=== PATIENT | female | born 1980 | race Caucasian/White ===

== ENCOUNTER 2017-10-09 00:11 | Emergency (ER) | payer BC, SELFPAY ==
[2017-10-09 01:28] LABS: Absolute Lymphocytes (CBC) 3.7 K/uL (0.7-4.9); Absolute Monocytes 0.4 K/uL (0.1-1.3); Absolute Neutrophil 5.9 K/uL (1.8-8.0); Basophils % 0.8 % (0-1.3); Eosinophils % 2.7 % (0-4.4); Hematocrit 39.8 % (36.0-45.0); Lymphocytes % 35.8 % (15.3-44.8); MCH 28.7 pg (27.0-35.0); MCV 84.9 fL (80-100); MPV 9.1 fL (7.6-11.3); Monocytes % 4.2 % (3.3-12.3); RBC Red Blood Cell Count 4.69 M/uL (3.86-4.86)
[2017-10-09 01:31] LABS: Bicarbonate 24 mEq/L (21-31); Glucose Level 94 mg/dL (65-120); Lipase 33 U/L (22-51); Potassium 3.5 mEq/L (3.6-5.0); Sodium Level 137 mEq/L (135-145)
[2017-10-09 01:37] LABS: Urine Blood TRACE (NEG); Urine Glucose NEGATIVE (NEG); Urine Protein NEGATIVE (NEG); Urine pH 6.5 (5.0-7.0)
[2017-10-09 01:37] LABS: ALT/SGPT 16 IU/L (10-60); AST/SGOT 17 IU/L (10-42); Albumin 3.8 g/dL (3.2-5.5); Alkaline Phosphatase 61 IU/L (42-121); Amylase Level 61 U/L (28-100); BUN Blood Urea Nitrogen 8 mg/dL (6-20); Bilirubin Direct < 0.1 mg/dL (0-0.2); Bilirubin Total 0.3 mg/dL (0.3-1.2); Protein, Total 7.5 g/dL (6.0-8.3)
[2017-10-09] MEDS ORDERED: ONDANSETRON 4 MG/2 ML VIAL ONE (01:58)
[2017-10-09] MEDS ORDERED: MORPHINE 4 MG/ML SYR ONE ×2 (01:58→04:08)
[2017-10-09] MEDS ORDERED: NA CHLORIDE 0.9% 1,000 ML ONE (02:06)
[2017-10-09 02:21] LABS: Urine Bacteria <20 /HPF (<20); Urine Culture Reflex Order NOT NEEDED; Urine RBC <5 /HPF (NONE SEEN)
--- NOTE | 2017-10-09 04:45 | ER ---
Nurse's Notes [facility] Name: Kimber Wilcox Age: 37 yrs Sex: Female : 1980 Arrival Date: 10/09/2017 Time: 00:13 Bed 24 Private MD: Dillon Carter Diagnosis: thoracic wall strain Presentation: 10/09 00:25 Presenting complaint: Patient states: that on Sunday she started to have pain to left fc side under breast area. States that it is sharp and is worse with deep breathing and lying flat. Transition of care: patient was not received from another setting of care. Onset of symptoms was October 05, 2017. Risk Assessment: Do you want to hurt yourself or someone else? Patient reports no desire to harm self or others. Initial Sepsis Screen: Does the patient meet any 2 criteria? No. Patient's initial sepsis screen is negative. Does the patient have a suspected source of infection? No. Patient's initial sepsis screen is negative. Care prior to arrival: Medication(s) given: Motrin, 600 mg, last at 1800. 00:25 Method Of Arrival: Ambulatory fc 00:25 Acuity: MARK 3 Triage Assessment: 00:30 General: Appears uncomfortable, obese, Behavior is calm, cooperative, appropriate for age. Pain: Complains of pain in left upper abd under left breast Pain currently is 7 out of 10 on a pain scale. Quality of pain is described as dull, sharp, Pain began gradually, Is continuous, Aggravated by increased activity, repositioning, deep breathing. EENT: No deficits noted. Neuro: Level of Consciousness is awake, alert, obeys commands, Oriented to person, place, time, situation. Cardiovascular: No deficits noted. Respiratory: Reports pain with movement pain with respiration Airway is patent Trachea midline Respiratory effort is even, unlabored, Respiratory pattern is regular, symmetrical, Onset: The symptoms/episode began/occurred gradually, the patient has mild shortness of breath. GI: No deficits noted. : No deficits noted. Derm: Skin is pink, warm \\T\\ dry. Musculoskeletal: Circulation, motion, and sensation intact. Capillary refill < 3 seconds, Range of motion: intact in all extremities. 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 - Social history:: Smoking status: Patient uses tobacco products, smokes one-half pack cigarettes per day. - Ebola Screening: : Patient negative for fever greater than or equal to 101.5 degrees Fahrenheit, and additional compatible Ebola Virus Disease symptoms Patient denies exposure to infectious person Patient denies travel to an Ebola-affected area in the 21 days before illness onset. Screenin:29 Abuse screen: Denies threats or abuse. Nutritional screening: No deficits noted. fc Tuberculosis screening: No symptoms or risk factors identified. Fall Risk None identified. Assessment: 01:07 General: Appears in no apparent distress. well groomed, well developed, well nourished, rk2 Behavior is calm, cooperative. Pain: Complains of pain in abdomen, under left breast area. Neuro: Level of Consciousness is alert, obeys commands, Oriented to person, place, time, situation. Cardiovascular: No deficits noted. Respiratory: Airway is patent Respiratory effort is even, unlabored, Respiratory pattern is regular, symmetrical. EENT: No deficits noted. Derm: Skin is pink, warm \\T\\ dry. 02:01 Reassessment: Patient appears in no apparent distress at this time. No changes from rk2 previously documented assessment. Patient and/or family updated on plan of care and expected duration. Pain level reassessed. 03:05 Reassessment: Pt. transported to ID in wheelchair by the [facility]. rk 04:03 Reassessment: Patient is alert, oriented x 3, equal unlabored respirations, skin bb warm/dry/pink. pt states her pain medication wore off and now "it is back with a vengeance" Dr Thomas notified. 04:57 Reassessment: Patient appears in no apparent distress at this time. No changes from ak1 previously documented assessment. Patient and/or family updated on plan of care and expected duration. Pain level reassessed. Patient is alert, oriented x 3, equal unlabored respirations, skin warm/dry/pink. Patient states feeling better. Patient states symptoms have improved. Vital Signs: 00:28 BP 105 / 82; Pulse 84; Resp 18; Temp 98.8(O); Pulse Ox 98% on R/A; Weight 102.06 kg fc (R); Height 5 ft. 2 in. (157.48 cm) (R); Pain 7/10; 02:01 BP 134 / 104; Pulse 88; Resp 16; Pulse Ox 99% on R/A; rk2 03:01 BP 110 / 79; Pulse 81; Resp 16; Pulse Ox 98% on R/A; rk2 04:04 BP 115 / 83; Pulse 74; Resp 16; Pulse Ox 98% on R/A; Pain 7/10; bb 00:28 Body Mass Index 41.15 (102.06 kg, 157.48 cm) ED Course: 00:13 Patient arrived in ED. am2 00:14 Dillon Carter MD is Private Physician. am2 00:28 Triage completed. fc 00:28 Arm band placed on Patient placed in an exam room, on a stretcher. fc 00:29 Patient has correct armband on for positive identification. Bed in low position. fc 00:29 No provider procedures requiring assistance completed. fc 00:35 Sanna Mckinley, BRYCE is Primary Nurse. rk2 00:43 Yusuf Thomas MD is Attending Physician. tw4 02:06 Chest Pa And Lat (2 Views) XRAY Sent. rk2 02:11 Patient moved to radiology via wheelchair. kw 02:12 X-ray completed. Patient tolerated procedure well. kw 02:12 Patient moved back from radiology. kw 02:12 Chest Pa And Lat (2 Views) XRAY In Process Unspecified. EDMS 03:[address] via wheelchair. kw1 03:21 CT completed. Patient tolerated procedure well. Patient moved back from CT. kw1 03:22 CT Chest Abdomen Pelvis W/O Contrast In Process Unspecified. EDMS 04:44 Dillon Carter MD is Referral Physician. tw4 04:57 IV discontinued, intact, bleeding controlled, No redness/swelling at site. Pressure ak1 dressing applied. Administered Medications: 02:01 Drug: morphine 4 mg Route: IVP; Site: right antecubital; rk2 02:55 Follow up: Response: No adverse reaction rk2 02:01 Drug: Zofran 4 mg Route: PO; rk2 02:55 Follow up: Response: No adverse reaction rk2 02:05 Drug: NS 0.9% 1000 ml Route: IV; Rate: 125 ml/hr; Site: right antecubital; rk2 04:11 Drug: morphine 4 mg Route: IVP; Site: right antecubital; leena 04:56 Follow up: Response: No adverse reaction ak1 Outcome: 04:44 Discharge ordered by . tw4 04:57 Discharged to home ambulatory, with family. ak1 04:57 Condition: improved 04:57 Discharge instructions given to patient, family, Instructed on discharge instructions, follow up and referral plans. no drinking with medication, no driving heavy equipment, medication usage, Demonstrated understanding of instructions, follow-up care, medications, Prescriptions given X 2. 04:58 Patient left the ED. ak1 Signatures: Dispatcher [employer] EDMS Adriana Caban RN Anali Prabhakar RN RN bb Whitley, Kimberlee kw Krenek, Amber, RN RN ak1 Angie Sotelo Kimberly kw1 Wadley, Terrence, MD MD tw4 Sanna Mckinley RN RN rk2
--- NOTE | 2017-10-09 04:45 | EDPHYS ---
Physician Documentation [facility] Name: Kimber Wilcox Age: 37 yrs Sex: Female : 1980 Arrival Date: 10/09/2017 Time: 00:13 Bed 24 Private MD: Dillon Carter ED Physician Yusuf Thomas HPI: 10/09 01:59 This 37 yrs old Female presents to ER via Ambulatory with complaints of Flank tw4 Pain - left, rib pain. 01:59 The patient complains of pain in the left mid back. The pain does not radiate. Onset: tw4 The symptoms/episode began/occurred today. Modifying factors: The symptoms are alleviated by nothing. the symptoms are aggravated by nothing. Associated signs and symptoms: The patient has no apparent associated signs or symptoms. Severity of pain: At its worst the pain was moderate in the emergency department the pain is unchanged. The patient has not experienced similar symptoms in the past. 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 - Social history:: Smoking status: Patient uses tobacco products, smokes one-half pack cigarettes per day. - Ebola Screening: : Patient negative for fever greater than or equal to 101.5 degrees Fahrenheit, and additional compatible Ebola Virus Disease symptoms Patient denies exposure to infectious person Patient denies travel to an Ebola-affected area in the 21 days before illness onset. ROS: 01:59 Constitutional: Negative for fever, chills, and weight loss, Respiratory: Negative for tw4 shortness of breath, cough, wheezing, and pleuritic chest pain, Abdomen/GI: Negative for abdominal pain, nausea, vomiting, diarrhea, and constipation. 01:59 Back: Negative for injury and pain, MS/Extremity: Negative for injury and deformity, Skin: Negative for injury, rash, and discoloration. 01:59 Cardiovascular: Positive for chest pain, Negative for edema, orthopnea, palpitations. Exam: 01:59 Constitutional: This is a well developed, well nourished patient who is awake, alert, tw4 and in no acute distress. Cardiovascular: Regular rate and rhythm with a normal S1 and S2. No gallops, murmurs, or rubs. Normal PMI, no JVD. No pulse deficits. Respiratory: Lungs have equal breath sounds bilaterally, clear to auscultation and percussion. No rales, rhonchi or wheezes noted. No increased work of breathing, no retractions or nasal flaring. Abdomen/GI: Soft, non-tender, with normal bowel sounds. No distension or tympany. No guarding or rebound. No evidence of tenderness throughout. Back: No spinal tenderness. No costovertebral tenderness. Full range of motion. MS/ Extremity: Pulses equal, no cyanosis. Neurovascular intact. Full, normal range of motion. 01:59 Chest/axilla: Inspection: no acute changes, Palpation: tenderness, that is moderate, that totally reproduces the patient's complaints. Vital Signs: 00:28 BP 105 / 82; Pulse 84; Resp 18; Temp 98.8(O); Pulse Ox 98% on R/A; Weight 102.06 kg fc (R); Height 5 ft. 2 in. (157.48 cm) (R); Pain 7/10; 02:01 BP 134 / 104; Pulse 88; Resp 16; Pulse Ox 99% on R/A; rk2 03:01 BP 110 / 79; Pulse 81; Resp 16; Pulse Ox 98% on R/A; rk2 04:04 BP 115 / 83; Pulse 74; Resp 16; Pulse Ox 98% on R/A; Pain 7/10; bb 00:28 Body Mass Index 41.15 (102.06 kg, 157.48 cm) MDM: 00:43 Patient medically screened. 10/09 00:47 Order name: Urine Dipstick--Ancillary (enter results); Complete Time: 01:56 10/09 01:56 Interpretation: Normal except: UBLD TRACE. 10/09 00:47 Order name: Urine --Ancillary (enter results); Complete Time: 01:56 10/09 00:48 Order name: Amylase, Serum; Complete Time: 01:56 10/09 00:48 Order name: Basic Metabolic Panel; Complete Time: 01:56 10/09 01:56 Interpretation: Normal except: K 3.5. 10/09 00:48 Order name: CBC with Diff; Complete Time: 01:56 10/09 01:56 Interpretation: Abnormal. 10/09 00:48 Order name: Creatinine for Radiology; Complete Time: 02:46 10/09 00:48 Order name: Hepatic Function; Complete Time: 01:56 10/09 02:46 Interpretation: Normal except: GLOB 3.7; A/G 1.0. 10/09 00:48 Order name: Lipase; Complete Time: 01:56 10/09 00:48 Order name: Urine Microscopic Only; Complete Time: 02:46 10/09 01:58 Order name: Chest Pa And Lat (2 Views) XRAY 10/09 02:46 Order name: CT Chest Abdomen Pelvis W/O Contrast 10/09 00:48 Order name: Urine Test (obtain specimen); Complete Time: 00:56 10/09 00:48 Order name: IV Saline Lock; Complete Time: 01:06 10/09 00:48 Order name: Labs collected and sent; Complete Time: 01:06 10/09 00:48 Order name: Urine Dipstick-Ancillary (obtain specimen); Complete Time: 00:57 4 Administered Medications: 02:01 Drug: morphine 4 mg Route: IVP; Site: right antecubital; rk2 02:55 Follow up: Response: No adverse reaction rk2 02:01 Drug: Zofran 4 mg Route: PO; rk2 02:55 Follow up: Response: No adverse reaction rk2 02:05 Drug: NS 0.9% 1000 ml Route: IV; Rate: 125 ml/hr; Site: right antecubital; rk2 04:11 Drug: morphine 4 mg Route: IVP; Site: right antecubital; bb 04:56 Follow up: Response: No adverse reaction ak1 Disposition: 10/09/17 04:44 Discharged to Home. Impression: thoracic wall strain. - Condition is Stable. - Discharge Instructions: Thoracic Strain, [id number]. - Prescriptions for Ibuprofen 800 mg Oral Tablet - take 1 tablet by ORAL route every 8 hours As needed take with food; 30 tablet. Tylenol- Codeine #3 300-30 mg Oral Tablet - take 2 tablet by ORAL route every 6 hours As needed; 6 tablet. - Medication Reconciliation Form, Thank You Letter, Antibiotic Education, Prescription Opioid Use form. - Follow up: Dillon Carter MD; When: As needed; Reason: Recheck today's complaints, Continuance of care, Re-evaluation by your physician. - Problem is new. - Symptoms have improved. Signatures: Dispatcher [employer] EDMS Adriana Caban RN RN Anali Carmona RN RN Ysabel Sanders RN RN ak1 Yusuf Thomas MD MD tw4 Sanna Mckinley RN RN rk2 Corrections: (The following items were deleted from the chart) 01:57 01:56 Within normal limits. tw4 04:58 04:44 10/09/2017 04:44 Discharged to Home. Impression: thoracic wall strain. Condition ak1 is Stable. Forms are Medication Reconciliation Form, Thank You Letter, Antibiotic Education, Prescription Opioid Use. Follow up: Dillon Carter; When: As needed; Reason: Recheck today's complaints, Continuance of care, Re-evaluation by your physician. Problem is new. Symptoms have improved. tw4
--- NOTE | 2017-10-09 09:16 | RAD REPORT ---
EXAM DESCRIPTION: RAD - Chest Pa And Lat (2 Views) - 10/09/2017 2:14 am CLINICAL HISTORY: Chest pain. COMPARISON: 12/09/2016 FINDINGS: Linear atelectasis is present both lung bases. The lungs are otherwise clear. The heart is normal in size. No displaced fractures. IMPRESSION: Linear subsegmental atelectasis in both lung bases.
--- NOTE | 2017-10-09 09:24 | RAD REPORT ---
EXAM DESCRIPTION: CT - Chest Abd Pelvis Wo Con - 10/09/2017 6:16 am CLINICAL HISTORY: Chest and abdomen pain. COMPARISON: 12/05/[address] scans are performed using dose optimization technique as appropriate and may includ e automated exposure control or mA/KV adjustment according to patient size. FINDINGS: Linear subsegmental atelectasis is seen in both posterior lung bases.Gastric banding is no jessy.No pleural or pericardial effusion.No intrathoracic adenopathy. The liver, spleen, pancreas, adrenal glands and kidneys are within normal limits. Cholecystectomy cli ps. No bowel obstruction, free air, free fluid or abscess. No pathologic lymphadenopathy in the abdomen o r pelvis. No worrisome osseous finding. 3.5 cm left ovarian follicle/cyst is suspected. IMPRESSION: No acute process is identified.
== END 2017-10-09 04:58 | disposition home or self-care (01) ==
LOC: ER 00:11
DX: S29.012A Strain of muscle and tendon of back wall of thorax, initial encounter (principal); F17.210 Nicotine dependence, cigarettes, uncomplicated
CPT/HCPCS: 36415; 71046; 71250; 74176; 80048; 80076; 81003; 81015; 81025; 82150; 83690; 85025; 96374; 99284; J2405; J7030

== ENCOUNTER 2024-02-12 17:12 | Emergency (ER) | payer OTHER ==
[2024-02-12] MEDS ORDERED: IBUPROFEN 200 MG TAB PO ONE (17:52)
[2024-02-12] MEDS ORDERED: IBUPROFEN 400 MG TAB ONE (17:53)
[2024-02-12] MEDS ORDERED: HYDROCODONE/APAP 5/325 MG TAB ONE (18:42)
--- NOTE | 2024-02-12 19:03 | RAD REPORT ---
EXAMINATION: XR RIGHT SHOUDLER CLINICAL INDICATION: Female, 43 years old. PAIN RIGHT TECHNIQUE:Two view radiograph of the right shoulder were obtained. COMPARISON: No prior exam. FINDINGS: No bone or joint abnormality detected. No focal osseous lesion. AC joint is unremarkable. IMPRESSION: No acute or significant abnormalities.
--- NOTE | 2024-02-12 19:13 | EDPHYS ---
Physician Documentation [facility] Name: Kimber Wilcox Age: 43 yrs Sex: Female : 1980 Arrival Date: 02/12/2024 Time: 17:12 Bed 14 Private MD: ED Physician Niraj Chawla HPI: 02/11 17:29 This 43 yrs old Female presents to ER via Unassigned with complaints of Shoulder ms3 Injury, Arm Injury, Fall Injury. 17:29 43-year-old female with no past medical history presents to the emergency department 45 ms3 minutes status post falling through the floor of her house. Patient states when falling 1 leg went through the floor and she went forward catching herself with her right arm against the door. Patient states her pain is a 6/10. Patient states pain is worse with movement of her right shoulder.. 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 - Infectious Disease History:: Denies. - Social history:: Smoking status: Patient/guardian denies using tobacco. ROS: 17:29 Constitutional: Negative for fever, and chills. Cardiovascular: Negative for chest ms3 pain, and palpitations. Respiratory: Negative for shortness of breath, cough, wheezing, and pleuritic chest pain, Abdomen/GI: Negative for abdominal pain, nausea, vomiting, diarrhea, and constipation, 17:29 MS/extremity: Positive for pain, of the Right shoulder, Exam: 17:29 Constitutional: This is a well developed, well nourished patient who is awake, alert, ms3 and in no acute distress. Head/Face: Normocephalic, atraumatic. Chest/axilla: Normal chest wall appearance and motion. Nontender with no deformity. Cardiovascular: Regular rate and rhythm with a normal S1 and S2. No gallops, murmurs, or rubs. Normal PMI, no JVD. No pulse deficits. Respiratory: Lungs have equal breath sounds bilaterally, clear to auscultation and percussion. No rales, rhonchi or wheezes noted. No increased work of breathing, no retractions or nasal flaring. Abdomen/GI: Soft, non-tender, with normal bowel sounds. No distension or tympany. No guarding or rebound. No evidence of tenderness throughout. 17:29 Musculoskeletal/extremity: Extremities: noted in the Right shoulder: pain, swelling, tenderness, Vital Signs: 17:30 BP 123 / 84; Pulse 80; Resp 18; Pulse Ox 99% on R/A; db 17:31 BP 147 / 88; Pulse 83; Resp 16; Temp 97.7(TE); Pulse Ox 98% on R/A; Weight 101.15 kg; hb Height 5 ft. 2 in. ; Pain 4/10; 18:00 BP 122 / 87; Pulse 75; Resp 18; Pulse Ox 100% on R/A; db 18:30 BP 117 / 88; Pulse 77; Resp 18; Pulse Ox 98% on R/A; db 19:21 BP 127 / 88; Pulse 77; Resp 18; Pulse Ox 99% on R/A; kj2 17:31 Body Mass Index 40.79 (101.15 kg, 157.48 cm) hb 17:31 Pain Scale: Adult hb MDM: 17:29 Differential diagnosis: Anterior dislocation without fracture, DJD, tendonitis, Humerus ms3 fracture versus rotator cuff tear. 17:31 Patient medically screened. ms3 19:13 Data reviewed: vital signs, nurses notes, radiologic studies, plain films, and as a ms3 result, I will discharge patient. I considered the following discharge prescriptions or medication management in the emergency department Medications were administered in the Emergency Department. See MAR. Independent interpretation of the following test(s) in the Emergency Department X-Ray: My interpretation is Right shoulder x-ray images reviewed by me do not reveal dislocation or fracture. Counseling: I had a detailed discussion with the patient and/or guardian regarding the historical points, exam findings, and any diagnostic results supporting the discharge/admit diagnosis, radiology results, to return to the emergency department if symptoms worsen or persist or if there are any questions or concerns that arise at home. Response to treatment: the patient's symptoms have markedly improved after treatment. Special discussion: I discussed with the patient/guardian in detail that at this point there is no indication for admission to the hospital. It is understood, however, that if the symptoms persist or worsen the patient needs to return immediately for re-evaluation. ED course: Discussed with patient and her necessity to follow-up with orthopedics as patient possibly has rotator cuff tear which will not show on right shoulder x-ray. Patient to follow-up with Dr. Fierro in 2 to 3 days. All questions were answered. Return precautions discussed include worsening symptoms, or any other concerns. 02/11 17:28 Order name: Shoulder Right (2 View) XRAY; Complete Time: 19:09 ms3 02/11 19:10 Order name: Sling; Complete Time: 19:34 ms3 Administered Medications: 17:55 Drug: Ibuprofen PO 600 mg PO once Route: PO; db 18:45 Follow up: Response: No adverse reaction; No change in condition; Pain is unchanged, db physician notified 18:44 Drug: HYDROcodone-acetaminophen PO 5 mg-325 mg 1 tabs PO once Route: PO; db 19:30 Follow up: Response: No adverse reaction; Pain is decreased kj2 Disposition Summary: 02/12/24 19:13 Discharge Ordered Notes: Location: Home ms3 Condition: Stable ms3 Diagnosis - Pain in right shoulder ms3 Followup: ms3 - With: Rodrigo Fierro MD - When: 2 - 3 days - Reason: Recheck today's complaints Discharge Instructions: - Discharge Summary Sheet ms3 - Shoulder Pain ms3 Forms: - Medication Reconciliation Form ms3 - Antibiotic Education ms3 - Prescription Opioid Use ms3 - Patient Portal Instructions ms3 - Leadership Thank You Letter ms3 Prescriptions: - Ibuprofen 600 mg Oral Tablet - take 1 tablet ORAL route every 6 hours As needed take with food; 30 tablet; ms3 Refills: 0, Product Selection Permitted Signatures: Dispatcher [facility] Antoinette Kowalski RN RN hb Sims, Marcus, DO DO ms3 Wendy Cadet RN RN Isabel Aesncio RN kj2
--- NOTE | 2024-02-12 19:13 | ER ---
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 Coronavirus hb screen: At this time, the client does not indicate any symptoms associated with coronavirus-19. Ebola Screen: No symptoms or risks identified at this time. Initial Sepsis Screen: Does the patient meet any 2 criteria? No. Patient's initial sepsis screen is negative. Does the patient have a suspected source of infection? No. Patient's initial sepsis screen is negative. Risk Assessment: Do you want to hurt yourself or someone else? Patient reports no desire to harm self or others. Onset of symptoms was February 12, 2024. 17:31 Method Of Arrival: Ambulatory hb 17:31 Acuity: MARK 4 hb Triage Assessment: 19:22 Injury Description: PAIN TO AFFECTED ARM. 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 - Infectious Disease History:: Denies. - Social history:: Smoking status: Patient/guardian denies using tobacco. Screenin:30 [facility] ED Fall Risk Assessment (Adult) History of falling in the last 3 months, db including since admission Yes- single mechanical fall (1 pt) Confusion or Disorientation No (0 pts) Intoxicated or Sedated No (0 pts) Impaired Gait No (0 pts) Mobility Assist Device Used No (0 pt) Altered Elimination No (0 pt) Score/Fall Risk Level 0 - 2 = Low Risk Oriented to surroundings, Maintained a safe environment. Abuse screen: Denies threats or abuse. Denies injuries from another. Nutritional screening: No deficits noted. Tuberculosis screening: No symptoms or risk factors identified. Assessment: 17:30 Reassessment: Patient appears in no apparent distress at this time. Patient and/or db family updated on plan of care and expected duration. Pain level reassessed. Patient is alert, oriented x 3, equal unlabored respirations, skin warm/dry/pink. General: Appears in no apparent distress. comfortable, Behavior is calm, cooperative. Pain: Complains of pain in right arm. Neuro: Level of Consciousness is awake, alert, obeys commands, Oriented to person, place, time, situation. Respiratory: Airway is patent Respiratory effort is even, unlabored, Respiratory pattern is regular, symmetrical. Musculoskeletal: Circulation, motion, and sensation intact. Capillary refill < 3 seconds, Range of motion: limited in right shoulder and right elbow Reports pain in right arm. 18:15 Reassessment: Patient appears in no apparent distress at this time. Patient and/or db family updated on plan of care and expected duration. Pain level reassessed. Patient is alert, oriented x 3, equal unlabored respirations, skin warm/dry/pink. 19:20 Reassessment: Patient appears in no apparent distress at this time. Patient and/or kj2 family updated on plan of care and expected duration. Pain level reassessed. Patient is alert, oriented x 3, equal unlabored respirations, skin warm/dry/pink. REPORT RECEIVED FROM BRYCE ALVAREZ. Vital Signs: 17:30 BP 123 / 84; Pulse 80; Resp 18; Pulse Ox 99% on R/A; db 17:31 BP 147 / 88; Pulse 83; Resp 16; Temp 97.7(TE); Pulse Ox 98% on R/A; Weight 101.15 kg; hb Height 5 ft. 2 in. ; Pain 4/10; 18:00 BP 122 / 87; Pulse 75; Resp 18; Pulse Ox 100% on R/A; db 18:30 BP 117 / 88; Pulse 77; Resp 18; Pulse Ox 98% on R/A; db 19:21 BP 127 / 88; Pulse 77; Resp 18; Pulse Ox 99% on R/A; kj2 17:31 Body Mass Index 40.79 (101.15 kg, 157.48 cm) hb 17:31 Pain Scale: Adult hb ED Course: 17:16 Patient arrived in ED. mr 17:16 Denisha Ni FNP-C is PHCP. kb 17:17 Niraj Chawla DO is Attending Physician. ms3 17:30 Patient has correct armband on for positive identification. Bed in low position. Call db light in reach. Side rails up X 1. Pulse ox on. NIBP on. Pillow given. 17:32 Triage completed. hb 17:33 Arm band placed on. hb 17:44 Antoinette Newby, RN is Primary Nurse. hb 17:52 Shoulder Right (2 View) XRAY In Process Unspecified. EDMS 19:12 Rodrigo Fierro MD is Referral Physician. ms3 19:22 Provided Education on: DISEASE PROCESS. kj2 19:23 No provider procedures requiring assistance completed. kj2 19:23 Patient did not have IV access during this emergency room visit. kj2 19:40 Sling applied to right arm. oe Administered Medications: 17:55 Drug: Ibuprofen PO 600 mg PO once Route: PO; db 18:45 Follow up: Response: No adverse reaction; No change in condition; Pain is unchanged, db physician notified 18:44 Drug: HYDROcodone-acetaminophen PO 5 mg-325 mg 1 tabs PO once Route: PO; db 19:30 Follow up: Response: No adverse reaction; Pain is decreased kj2 Medication: 19:22 VIS not applicable for this client. kj2 Outcome: 19:13 Discharge ordered by . ms3 19:23 Discharged to home ambulatory, kj2 19:23 Condition: stable 19:23 Discharge instructions given to patient, Instructed on discharge instructions, follow up and referral plans. Demonstrated understanding of instructions, follow-up care, 19:42 Patient left the ED. kj2 Signatures: Dispatcher [employer] EDND Denisha Ni, LEVEL VIAL INSPECTOR AND TESTER-C LEVEL VIAL INSPECTOR AND TESTER-Ckpenny BarahonaDee, Reg Reg mr Antoinette Newby, RN RN Mychal Todd oe Niraj Chawla DO DO ms3 Wendy Cadet, BRYCE RN Isabel Arceo RN RN kj2
[2024-02-12 20:34] VITALS: BP 127/88; O2SAT 99
== END 2024-02-12 19:42 | disposition home or self-care (01) ==
LOC: ER 17:12
DX: M25.511 Pain in right shoulder (principal)
CPT/HCPCS: 99284